=== PATIENT | male | born 1965 | race African-American/Black ===

== ENCOUNTER 2019-11-09 09:27 | Emergency (ER) | payer BC, OTHER ==
[2019-11-10 12:15] LABS: SARS-CoV-2 MS2 Positive; SARS-CoV-2 N Gene Negative; SARS-CoV-2 S Gene Negative; SARS-CoV-2 orf1ab Negative
== END 2019-11-09 10:24 | disposition home or self-care (01) ==
LOC: NAV ERS 09:27
DX: Z20.828 Contact with and (suspected) exposure to other viral communicable diseases (principal)
CPT/HCPCS: 87635; 99283; U0003